=== PATIENT | male | born 1965 | race Hispanic/Latino ===

== ENCOUNTER 2018-04-07 14:00 | Emergency (ER) | payer SELFPAY ==
--- NOTE | 2018-04-07 15:26 | EDPHYS ---
Physician Documentation [facility] Name: Kevin Dawkins Age: 52 yrs Sex: Male : 1965 Arrival Date: 04/07/2018 Time: 14:04 Bed 23 Private MD: Out, [facility] ED Physician Chuck Burch HPI: 04/07 15:21 This 52 yrs old Male presents to ER via Ambulatory with complaints of Elbow cp Injury - SWELLING. 15:21 The patient or guardian complains of pain, that is acute, swelling, tenderness, cp erythema. The complaints affect the right elbow. Context: resulted from unknown cause. 15:22 Onset: The symptoms/episode began/occurred 3 day(s) ago. Treatment prior to arrival cp includes: no previous treatment. Historical: - Allergies: 14:14 No Known Allergies; ph - Home Meds: 14:14 Lisinopril Oral [Active]; ph - PMHx: 14:14 Hypertension; ph - PSHx: 14:14 None; ph - Immunization history:: Adult Immunizations unknown. - Social history:: Smoking status: Patient uses tobacco products, denies chronic smoking, but will smoke occasionally. - Ebola Screening: : No symptoms or risks identified at this time. ROS: 15:22 Eyes: Negative for injury, pain, redness, and discharge. cp 15:22 Constitutional: Negative for body aches, chills, fever, poor PO intake. 15:22 ENT: Negative for drainage from ear(s), ear pain, sore throat, difficulty swallowing, difficulty handling secretions. 15:22 Cardiovascular: Negative for chest pain, edema, palpitations. 15:22 Respiratory: Negative for cough, shortness of breath, wheezing. 15:22 MS/extremity: Positive for erythema, pain, swelling, tenderness, of the right elbow, Negative for injury or acute deformity, decreased range of motion, paresthesias. 15:22 All other systems are negative. Exam: 15:24 Constitutional: The patient appears in no acute distress, alert, awake, cp non-diaphoretic, non-toxic, well developed, well nourished. 15:24 Head/Face: Normocephalic, atraumatic. cp 15:24 Eyes: Periorbital structures: appear normal, Conjunctiva: normal, no exudate, no injection, Lids and lashes: appear normal, bilaterally. 15:24 ENT: External ear(s): are unremarkable, Nose: is normal, Mouth: Lips: moist, Oral mucosa: moist, Posterior pharynx: is normal, airway is patent, no erythema, no exudate. 15:24 Chest/axilla: Inspection: normal. 15:24 Cardiovascular: Rate: normal, Rhythm: regular. 15:24 Respiratory: the patient does not display signs of respiratory distress, Respirations: normal, no use of accessory muscles, no retractions, no splinting, no tachypnea, labored breathing, is not present, Breath sounds: are clear throughout, no decreased breath sounds, no stridor, no wheezing. 15:24 Abdomen/GI: Inspection: abdomen appears normal. 15:24 Back: pain, is absent, ROM is normal. 15:24 Skin: cellulitis, that is moderate, well demarcated, on the dorsal aspect of right forearm and right elbow. Vital Signs: 14:14 BP 119 / 98; Pulse 88; Resp 18; Temp 97.9(O); Pulse Ox 100% on R/A; Weight 122.47 kg; ph Height 5 ft. 10 in. (177.80 cm); Pain 8/10; 15:30 BP 126 / 78; Pulse 84; Resp 18; Pulse Ox 99% on R/A; kr2 14:14 Body Mass Index 38.74 (122.47 kg, 177.80 cm) ph MDM: 15:11 Patient medically screened. cp 15:25 Differential diagnosis: contusion, sepsis, DVT, abscess, bursitis, septic joint, cp cellulitis. 15:25 Data reviewed: vital signs, nurses notes, and as a result, I will discharge patient. cp Counseling: I had a detailed discussion with the patient and/or guardian regarding: the historical points, exam findings, and any diagnostic results supporting the discharge/admit diagnosis, to return to the emergency department if symptoms worsen or persist or if there are any questions or concerns that arise at home. 04/07 15:27 [place] [facility] [place]: outline area of erythema; Complete Time: 15:30 cp Administered Medications: No medications were administered Disposition: 16:21 Co-signature as Attending Physician, Chuck Burch MD. rn Disposition: 04/07/18 15:26 Discharged to Home. Impression: Cellulitis of right upper limb. - Condition is Stable. - Discharge Instructions: Cellulitis, Adult. - Prescriptions for Clindamycin HCl 300 mg Oral Capsule - take 1 capsule by ORAL route every 6 hours for 10 days; 40 capsule. Naprosyn 500 mg Oral Tablet - take 1 tablet by ORAL route 2 times per day take with food; 20 tablet. Tramadol 50 mg Oral Tablet - take 1 tablet by ORAL route every 8 hours as needed; 20 tablet. Bactrim DS 800- 160 mg Oral Tablet - take 1 tablet by ORAL route every 12 hours for 10 days; 20 tablet. - Medication Reconciliation Form, Thank You Letter, Antibiotic Education, Prescription Opioid Use form. - Follow up: Private Physician; When: 48 Hours; Reason: Recheck today's complaints. - Problem is new. - Symptoms are unchanged. Signatures: Chuck Burch MD MD rn Hall, Patricia, RN RN Teo Jimenez PA PA cp Radha Garland RN RN kr2 Corrections: (The following items were deleted from the chart) 15:50 15:26 04/07/2018 15:26 Discharged to Home. Impression: Cellulitis of right upper limb. kr2 Condition is Stable. Forms are Medication Reconciliation Form, Thank You Letter, Antibiotic Education, Prescription Opioid Use. Follow up: Private Physician; When: 48 Hours; Reason: Recheck today's complaints. Problem is new. Symptoms are unchanged. cp
--- NOTE | 2018-04-07 15:26 | ER ---
Nurse's Notes [facility] Name: Kevin Dawkins Age: 52 yrs Sex: Male : 1965 Arrival Date: 04/07/2018 Time: 14:04 Bed 23 Private MD: Out, [facility] Diagnosis: Cellulitis of right upper limb Presentation: 04/07 14:12 Presenting complaint: Patient states: " I noticed my R elbow hurting a few days ago and ph then it started swelling and feeling hot." Swelling and redness noted to R elbow, warm to touch, radial pulse palpable, denies fever, N/V/D or known injury. Transition of care: patient was not received from another setting of care. Onset of symptoms was April 07, 2018. Risk Assessment: Do you want to hurt yourself or someone else? Patient reports no desire to harm self or others. Initial Sepsis Screen: Does the patient meet any 2 criteria? No. Patient's initial sepsis screen is negative. Does the patient have a suspected source of infection? Yes: Skin breakdown/wound. Care prior to arrival: None. 14:12 Method Of Arrival: Ambulatory ph 14:12 Acuity: TOBY 4 ph Triage Assessment: 14:40 General: Appears in no apparent distress. comfortable, well groomed, well developed, kr2 well nourished, Behavior is calm, cooperative, appropriate for age. Pain: Complains of pain in right elbow Pain radiates to dorsal aspect of right forearm and palmar aspect of right forearm Pain currently is 8 out of 10 on a pain scale. Quality of pain is described as aching, sharp, tender, Is continuous, Alleviated by rest, keeping arm bent Aggravated by increased activity, straightening arm. Neuro: Level of Consciousness is awake, alert, obeys commands, Oriented to person, place, time, situation. Cardiovascular: Capillary refill < 3 seconds in bilateral fingers Patient's skin is warm and dry. Respiratory: Airway is patent Respiratory effort is even, unlabored, Respiratory pattern is regular, symmetrical. Musculoskeletal: Circulation, motion, and sensation intact. Swelling warm to touch, patient denies any recent injuries. Injury Description: Denies recent injury. Historical: - Allergies: 14:14 No Known Allergies; ph - Home Meds: 14:14 Lisinopril Oral [Active]; ph - PMHx: 14:14 Hypertension; ph - PSHx: 14:14 None; ph - Immunization history:: Adult Immunizations unknown. - Social history:: Smoking status: Patient uses tobacco products, denies chronic smoking, but will smoke occasionally. - Ebola Screening: : No symptoms or risks identified at this time. Screenin:40 Abuse screen: Denies threats or abuse. Denies injuries from another. Nutritional kr2 screening: No deficits noted. Tuberculosis screening: No symptoms or risk factors identified. Fall Risk None identified. Assessment: 15:00 Reassessment: See triage assessment. kr2 15:48 Reassessment: Patient appears in no apparent distress at this time. Patient and/or kr2 family updated on plan of care and expected duration. Pain level reassessed. Patient is alert, oriented x 3, equal unlabored respirations, skin warm/dry/pink. Area of erythema marked as ordered. Vital Signs: 14:14 BP 119 / 98; Pulse 88; Resp 18; Temp 97.9(O); Pulse Ox 100% on R/A; Weight 122.47 kg; ph Height 5 ft. 10 in. (177.80 cm); Pain 8/10; 15:30 BP 126 / 78; Pulse 84; Resp 18; Pulse Ox 99% on R/A; kr2 14:14 Body Mass Index 38.74 (122.47 kg, 177.80 cm) ph ED Course: 14:04 Patient arrived in ED. sb2 14:05 Out, [facility] is Private Physician. sb2 14:13 Triage completed. ph 14:14 Arm band placed on Patient placed in an exam room, Patient notified of wait time. ph 14:37 Radha Garland, RN is Primary Nurse. kr2 14:44 Patient has correct armband on for positive identification. Bed in low position. Call kr2 light in reach. Pulse ox on. NIBP on. Door closed. Warm blanket given. Head of bed elevated. 15:10 Teo Jimenez PA is PHCP. cp 15:11 Chuck Burch MD is Attending Physician. cp 15:48 No provider procedures requiring assistance completed. Patient did not have IV access kr2 during this emergency room visit. Administered Medications: No medications were administered Outcome: 15:26 Discharge ordered by . cp 15:49 Discharged to home ambulatory. kr2 15:49 Condition: good 15:49 Discharge instructions given to patient, Instructed on discharge instructions, follow up and referral plans. medication usage, Demonstrated understanding of instructions, follow-up care, medications, Prescriptions given X 4. 15:50 Patient left the ED. kr2 Signatures: Maddy Wadsworth, RN RN parminder Jimenez, HUNG Bruce cp, Karey, RN RN kr2 Sylvia Perla sb2
== END 2018-04-07 15:50 | disposition home or self-care (01) ==
LOC: ER 14:00
DX: L03.113 Cellulitis of right upper limb (principal); I10 Essential (primary) hypertension; Z72.0 Tobacco use
CPT/HCPCS: 99283